=== PATIENT | female | born 2000 ===

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

== ENCOUNTER 2019-05-04 17:01 | Inpatient (IN) ==
[2019-05-04] MEDS ORDERED: OXYTOCIN/LR 20 UNIT/1,000 ML BAG IV ONE ×3 (17:39→19:25)
[2019-05-04] MEDS ORDERED: BUTORPHANOL 2 MG/ML VIAL ONE (17:39)
[2019-05-04] MEDS ORDERED: ONDANSETRON 4 MG/2 ML VIAL IV PRN ×2 (18:08→18:21)
[2019-05-04] MEDS ORDERED: BUTORPHANOL 2 MG/ML VIAL IV PRN (18:08)
[2019-05-04] MEDS ORDERED: LACTATED RINGERS 500 ML IV PRN (18:08)
[2019-05-04] MEDS ORDERED: DIPH/TET/ACEL PERT BOOSTER VACCINE 0.5 ML VIAL IM ONE (18:21)
[2019-05-04] MEDS ORDERED: BISACODYL 10 MG SUPP RECTAL PRN (18:21)
[2019-05-04] MEDS ORDERED: ACETAMINOPHEN 325 MG TABLET PO PRN (18:21)
[2019-05-04] MEDS ORDERED: WITCH HAZEL PADS 100/JAR TOP PRN (18:21)
[2019-05-04] MEDS ORDERED: LANOLIN 50% CREAM 0.3 OZ TUBE TOP PRN (18:21)
[2019-05-04] MEDS ORDERED: HYDROCORTISONE 2.5% RECTAL CREAM 30 GM TUBE TOP PRN (18:21)
[2019-05-04] MEDS ORDERED: MEASLES/MUMPS/RUBELLA VACCINE 0.5 ML VIAL SUBCUT ONE (18:21)
[2019-05-04] MEDS ORDERED: BENZOCAINE 20%/MENTHOL 0.5% SPRAY 56 GM CAN TOP PRN (18:21)
[2019-05-04] MEDS ORDERED: RHO(D) IMMUNE GLOBULIN 300 MCG SYRINGE IM ONE (18:21)
[2019-05-04 18:27] LABS: Basophils % 0.3 % (0.0-0.8); Eosinophils % 0.3 % (0.00-10.9); Hematocrit 33.4 VOL% (35.7-47.0); Hemoglobin 10.2 GM/DL (12.0-16.0); Immature Granulocytes % 0.5 %; Immature Granulocytes Absolute 0.05 #; Lymphocytes % 10.6 % (21.3-54.2); Mean Corpuscular HGB Conc 30.5 GM/DL (32-36); Mean Corpuscular Volume 76.1 FL (87-102); Mean Platelet Volume 10.2 FL (9.6-12.0); Monocytes % 9.2 % (1.7-12.7); Neutrophils % 79.1 % (38.7-73.9); Platelet Count 367 T/CUMM (130-400); Red Blood Count 4.39 MC/CUMM (3.8-5.5); Red Cell Distribution Width 16.9 % (9.3-17.3); White Blood Count 9.7 T/CUMM (4-12)
[2019-05-04] MEDS ORDERED: LACTATED RINGERS 1,000 ML IV SCH (18:30)
[2019-05-04] MEDS: oxyCODONE/ACETAMINOPHEN 5-325 MG TABLET PO PRN ×2 (18:44→20:06)
[2019-05-04] MEDS: IBUPROFEN 800 MG TABLET PO PRN (18:45)
[2019-05-04 18:58] LABS: Albumin 2.9 G/DL (3.4-5.0); Bilirubin,Total 0.8 MG/DL (0.2-1.0); Calcium 8.4 MG/DL (8.5-10.1); Osmolality,Calculated 271.7 MOS/KG (273-304); Total Protein 7.1 G/DL (6.4-8.3)
[2019-05-05] MEDS: DOCUSATE SODIUM 100 MG CAPSULE PO SCH ×3 (04:41→21:20)
[2019-05-05] MEDS: oxyCODONE/ACETAMINOPHEN 5-325 MG TABLET PO PRN ×3 (04:45→21:22)
[2019-05-05] MEDS: IBUPROFEN 800 MG TABLET PO PRN ×3 (04:47→21:20)
[2019-05-05 05:18] LABS: Basophils % 0.3 % (0.0-0.8); Eosinophils # 0.1 10*3/uL (0.0-0.87); Eosinophils % 0.5 % (0.00-10.9); Hematocrit 26.4 VOL% (35.7-47.0); Hemoglobin 8.2 GM/DL (12.0-16.0); Immature Granulocytes % 0.6 %; Immature Granulocytes Absolute 0.06 #; Lymphocytes # 1.5 10*3/uL (1.4-4.0); Lymphocytes % 14.1 % (21.3-54.2); Mean Corpuscular HGB Conc 31.1 GM/DL (32-36); Mean Corpuscular Volume 75.4 FL (87-102); Mean Platelet Volume 10.5 FL (9.6-12.0); Monocytes % 6.7 % (1.7-12.7); Neutrophils % 77.8 % (38.7-73.9); Platelet Count 280 T/CUMM (130-400); Red Cell Distribution Width 16.7 % (9.3-17.3); White Blood Count 10.6 T/CUMM (4-12)
[2019-05-05] MEDS ORDERED: MULTIVITAMIN (PRENATAL) TABLET PO SCH (09:00)
[2019-05-06] MEDS: IBUPROFEN 800 MG TABLET PO PRN ×2 (04:29→09:27)
[2019-05-06] MEDS: DOCUSATE SODIUM 100 MG CAPSULE PO SCH (08:59)
[2019-05-06] MEDS: oxyCODONE/ACETAMINOPHEN 5-325 MG TABLET PO PRN (09:25)
[2019-05-06 11:27] VITALS: BP 124/71
== END 2019-05-06 11:55 | disposition home or self-care (01) | DRG 560 ==
LOC: N.LDOUT 17:01 → N.LD 17:03 → N.OB 05-06 01:43
PROVIDERS: ADMIT Obstetrics & Gynecology; ATTEND Obstetrics & Gynecology